=== PATIENT | male | born 1960 | race Caucasian/White ===

== ENCOUNTER 2017-08-02 16:33 | Emergency (ER) | payer MEDICAID, MEDICARE ==
[~2017-08-02] VITALS: Ht 180.3 cm; Wt 78.0 kg
[~2017-08-02 16:33] MED LIST: CHLO25TA34 PO; OLAN10TA29 PO; SERT-274 PO
[2017-08-02 21:02] LABS: Acetaminophen < 2.0 ug/mL (10-30)
[2017-08-02 22:07] LABS: Alcohol, Urine < 3.0 mg/dL (0-5); Amphetamine Screen, Urine POSITIVE (NEGATIVE); Barbiturate Scree,Urine NEGATIVE (NEGATIVE); Benzodiazephine Screen, Urine NEGATIVE (NEGATIVE); Cannabinoid Screen, Urine POSITIVE (NEGATIVE); Cocaine Screen, Urine NEGATIVE (NEGATIVE); Opiate Scree,Urine NEGATIVE (NEGATIVE); Phencyclidine Screen, Urine NEGATIVE (NEGATIVE)
[2017-08-02 23:44] LABS: Basophils # (auto) 0.1 uL; Eosinophils # (auto) 0.3 uL; Eosinophils % (auto) 2.1 % (0.0-7.0); Hematocrit 42.4 % (41.0-53.0); Mean Corpuscular Volume 91.1 fL (80.0-100.0); Monocytes % (auto) 8.4 % (0.0-12.0); Neutrophils # (auto) 4.8 uL; Neutrophils % (auto) 39.5 % (37.0-80.0); Platelet Count (auto) 301 10^3/uL (140-450); Red Blood Cells 4.66 10^6/uL (4.5-5.90); Red Cell Distribution Width 13.5 % (11.8-14.3); White Blood Cell 12.2 10^3/uL (4.4-10.8)
[2017-08-02 23:56] LABS: Albumin 3.9 g/dL (3.4-5.0); BUN/Creatinine Ratio 19.7; Calcium 9.3 mg/dL (8.5-10.1)
[2017-08-02 23:59] LABS: Bilirubin, Total 0.3 mg/dL (0.2-1.0); Total Protein 7.2 g/dL (6.4-8.2)
[2017-08-03] MEDS ORDERED: clonazePAM 0.5 MG TAB PO ONE (01:00)
[2017-08-03] MEDS ORDERED: OLANZapine 5 MG TAB PO ONE ×2 (01:00→15:00)
[2017-08-03] MEDS ORDERED: clonazePAM 0.5 MG TAB PO PRN (01:00)
[2017-08-03] MEDS ORDERED: CITALOPRAM HYDROBR 20 MG TAB PO SCH (10:00)
[2017-08-03 15:02] VITALS: BP 135/77
== END 2017-08-03 15:03 | disposition short-term general hospital (02) ==
LOC: ER 16:33
DX: F32.9 Major depressive disorder, single episode, unspecified (principal); R45.851 Suicidal ideations; F17.210 Nicotine dependence, cigarettes, uncomplicated; Z90.49 Acquired absence of other specified parts of digestive tract
CPT/HCPCS: 36415; 80053; 80307; 80320; 80329; 85025

== ENCOUNTER 2017-08-31 16:35 | Emergency (ER) | payer MEDICARE ==
[~2017-08-31] VITALS: Ht 177.8 cm; Wt 81.6 kg
[2017-08-31 17:45] VITALS: BP 125/82
[2017-08-31] MEDS ORDERED: cefTRIAXone SOD 1,000 MG VL IM ONE (18:15)
== END 2017-08-31 18:42 | disposition home or self-care (01) ==
LOC: ER 16:38
DX: J02.9 Acute pharyngitis, unspecified (principal); F17.210 Nicotine dependence, cigarettes, uncomplicated; Z79.899 Other long term (current) drug therapy; Z90.49 Acquired absence of other specified parts of digestive tract
CPT/HCPCS: 96372; 99283; J0696